=== PATIENT | female | born 1970 | race Caucasian/White ===

== ENCOUNTER 2016-03-04 11:51 | Emergency (ER) | payer BC, OTHER ==
[~2016-03-04] VITALS: Ht 170.2 cm; Wt 108.9 kg
[2016-03-04 12:17] VITALS: BP 131/74
[2016-03-04] MEDS ORDERED: methylPREDNISolone SOD SUCC 125 MG/2 ML VL IM ONE (15:00)
== END 2016-03-04 15:19 | disposition home or self-care (01) ==
LOC: ER 11:51
DX: M51.37 Other intervertebral disc degeneration, lumbosacral region (principal); M54.16 Radiculopathy, lumbar region; M54.5 Low back pain; G89.29 Other chronic pain; F41.9 Anxiety disorder, unspecified; Z88.8 Allergy status to other drugs, medicaments and biological substances; Z88.1 Allergy status to other antibiotic agents
CPT/HCPCS: 96372; 99283; J2930